=== PATIENT | female | born 1955 | race African-American/Black ===

== ENCOUNTER 2024-11-30 13:51 | Outpatient (AMB) | payer MEDICARE, SELFPAY ==
--- NOTE | 2024-11-30 13:55 | A.OFFVIS_ITS ---
Vital Signs 11/30/24 14:04 Pulse 65 Intake Visit Reasons: [facility] [place] chloroquine Allergy (Unknown, Verified 11/22/24 11:29) Unknown Medication List - Last Reconciled 11/30/24 by Gomez Warren MD famotidine 20 mg PO BID montelukast 10 mg PO BEDTIME valsartan 160 mg PO DAILY verapamil ER 240 mg PO DAILY HPI Comments Details: The patient is a 69-year-old female presenting with elevated blood pressure and management of migraine headaches. Her current treatment with Verapamil has partially alleviated symptoms associated with both conditions, but her blood pressure is persistently high. It was confirmed that she adheres to her prescribed medication regimen, including a secondary medication taken in the evening. However, the existing medication dosage appears insufficient to achieve target blood pressure levels. An upcoming consultation with her primary care physician to evaluate her current treatment plan was advised. Consideration of adding or modifying the treatment plan, pending evaluation by her primary provider, was highlighted. [facility] Medical History (Updated 11/30/24 @ 13:57 by Gomez Warren MD) Migraine Hypertension Review of Systems Const Details: - Cardiovascular: Reports elevated blood pressure; adherence to Verapamil noted. - Neurologic: Reports improvement of headaches with current treatment regimen. Physical Exam Neuro Other: Mental Status: Alert and oriented to person, place, and time. Normal attention. Normal spontaneous speech, fluency, and comprehension. No obvious issues with mood and memory. Affect is appropriate. Cranial Nerves: CN II: Visual luciano full to confrontation, visual acuity intact. CN III, IV, : Pupils equal, round, reactive to light and accommodation. Extraocular movements are normal. CN V: Facial sensation is normal. CN VII: Facial movements symmetrical. CN VIII: Hearing intact to bedside conversation is normal. CN IX, X: Palate elevates symmetrically. CN XI: Shoulder shrug and head turn symmetrical. CN XII: Tongue midline without atrophy or fasciculations. Extrapyramidal: Full facial expressions and blinking. No rigidity. Movements are appropriate with no tremor or abnormality. Speech: Normal; no dysarthria or tremor. Assessment & Plan Assessment & Plan (1) Migraine: Code(s): G43.909 - Migraine, unspecified, not intractable, without status migrainosus Category: Medical Qualifiers: Migraine type: migraine (< 15 days per month) without aura Status migrainosus presence: without status migrainosus Intractability: not intractable Qualified Code(s): G43.009 - Migraine without aura, not intractable, without status migrainosus Plan Impression: HTN and migraine Rec: a: Please discuss BP managemnet with PCP b: Continue verapamil 240mg at night Medications: New verapamil ER 240 mg PO DAILY 90 caps 1RF Coding Level of Care Code Est Pt Level 4 (53736) Diagnoses Migraine without aura and without status migrainosus, not intractable G43.009 Migraine type: migraine (< 15 days per month) without aura Status migrainosus presence: without status migrainosus Intractability: not intractable
[2024-11-30 14:04] VITALS: PULSE 65
--- OUTSIDE RECORDS SUMMARY | 2024-11-30 14:45 | XMS_ITS | Clinical Summary ---
Author Organization [facility] Address [address] [place] [address] Phone Care Team Providers Care Assistance Specialist Name Role Phone Marya Pedraza MD Primary Care Prov ider Allergies Active Allergy Reactions Criticality Noted Date Comments Ratcliff Itching 09/18/2016 Chloroquine Hcl Itching 05/31/2008 Codeine Itching 06/13/2009 Medications ASPIRIN-ACETAM INOPHEN-CAFFEI NE ORAL Take 1 tablet by mouth as needed. Active bisacodyL (DULCOLAX) 5 mg EC tablet Take 2 tabs by mouth right before beginning bowel prep. Follow instructions given by office for timing. 09/03/19 24 Active budesonide-for moteroL (Symbicort) 160-4.5 mcg/actuation inhaler Inhale 2 Puffs into the lungs 2 Times Daily. 12/05/19 23 Active hydrOXYzine HCL (ATARAX) 25 mg tablet Take 1 Tablet by mouth 3 times daily as needed for Itching. 08/20/19 24 Active levocetirizine (XYZAL) 5 mg tablet Take 1 Tablet by mouth every evening. 12/05/19 23 Active polyethylene glycol (GoLYTELY) 236-22.74-6.74 -5.86 gram solution Take 240 mL by mouth once for 1 dose. Take 4L by mouth once for one dose. May substitue any PEG. Starting at 6PM the night before your procedure drink 1 8oz glasses at your own pace until rectals run clear. 11/10/19 24 Active verapamil ER (VERELAN) 240 mg 24 hr capsule Take 1 Capsule by mouth daily. 10/30/19 24 Active fluticasone-um eclidinium-erin anterol (Trelegy Ellipta) 200-62.5-25 mcg inhaler Inhale 1 Puff into the lungs daily. - Inhalation 11/14/19 24 Active butalbital-soledad taminophen-caf feine (FIORICET, ESGIC) 50-325-40 mg per tablet TAKE 1 TABLET BY MOUTH EVERY 4 HOURS NEEDED FOR HEADACHE FOR UP TO 28 DAYS 20 tablet 04/28/19 25 Active albuterol HFA (PROAIR HFA ; PROVENTIL HFA ; VENTOLIN HFA) 90 mcg/actuation inhalerIndicat ions:Wheezing Inhale 2 puffs by mouth every 4 (four) hours if needed for wheezing. 18 g 1 05/10/19 25 Active bisacodyL (DULCOLAX) 5 mg EC tablet Take 2 tablets by mouth right before beginning bowel prep. See instructions provided by the office 2 tablet 09/08/19 25 Active polyethylene glycol (Golytely) 236-22.74-6.74 -5.86 gram solution Take 4L by mouth once for one dose. May substitue any PEG. Starting at 6PM the night before your procedure drink 1 8oz glasses at your own pace until you complete half of the gallon. Finish 2nd half of the gallon 5 hours before your procedure. 4000 mL 09/08/19 25 Active valsartan (DIOVAN) 160 mg tablet TAKE 1 TABLET BY MOUTH DAILY 90 tablet 09/09/19 25 Active montelukast (SINGULAIR) 10 mg tablet TAKE 1 TABLET BY MOUTH AT BEDTIME 90 tablet 11/20/19 25 Active famotidine (Pepcid) 20 mg tablet Take 1 tablet (20 mg total) by mouth 2 (two) times a day. 180 each 1 05/10/19 25 025 montelukast (SINGULAIR) 10 mg tablet TAKE 1 TABLET BY MOUTH AT BEDTIME 90 tablet 08/03/19 25 025 Discontinued Active Problems Problem Noted Date Diagnosed Date Chronic nonintractable headache 07/05/2021 COVID-19 virus infection 04/04/2021 Overview (01/08/2024): 03/21/2021 Elevated lipids 09/08/2018 Obesity (BMI 30-39.9) 09/08/2018 Allergic rhinitis 01/30/2011 Constipation 01/30/2011 Hypertension 01/30/2011 Encounters Date Type Department Care Team Description 09/27/2024 10:16 AM EDT - 09/27/2024 11:59 PM EDT Hospital Encounter Radiology Department - [address] [phone] Screening mammogram for breast cancer Discharge Disposition: Home or Self Care 09/21/2024 10:35 AM EDT Anesthesia Event [facility] [address] [place] [phone] Uvaldo Garza MD 09/21/2024 9:46 AM EDT - 09/21/2024 11:59 PM EDT Hospital Encounter [facility] [address] [place] [phone] Rishi Stanford MD Hayes, Brett L, CRNA Saliga, Jesse L, MD Hx of colonic polyps Discharge Disposition: Home or Self Care 09/17/2024 9:08 AM EDT - 09/17/2024 11:59 PM EDT Hospital Encounter Bone Density - [address] [phone] Encounter for screening for osteoporosis Discharge Disposition: Home or Self Care from Last 3 Months Immunizations Name Administration Dates Next Due Hepatitis A Adult (Havrix; V aqta) 19yo and older 09/24/2005,05/29/2004,11/06/1998 IPV Inactivated polio (Ipol) 6wks and older 06/05/2004,11/06/1998 Influenza Quadravalent, MDCK , 0.5ml, preservative free (Flucelvax) 6mo and older 02/22/2022,02/05/2021,01/25/2020,02/23,02/03/2018,03/12/2017 Influenza trivalent, 0.5mL, preservative free (Fluarix; FluLaval; Fluzone) ages 6mo and older (Afluria) 3 years and older 03/24/2012 Influenza trivalent, with pr eservative (Fluzone; Afluria) 6mo and older 01/31/2016,01/30/2011,01/23/2010,12/22,02/09/2007,02/18/2005,03/15/2004 Meningococcal MCV4P 05/09/2011,05/29/2004 Pfizer SARS-CoV-2 COVID-19, mRNA, LNP-S, preservative free 07/26/2020,07/04/2020 Td Tetanus diptheria (Tdvax) 7yo and older 06/05/2004 Tdap Tetanus diptheria acell ular pertussis (Boostrix; Adacel) 7yo and older 01/25/2020,09/13/2008 Typhoid VICPS (Typhim Vi) 2y o and older 05/09/2011,09/13/2008,05/29/2004,05/09 Yellow Fever (YF-VAX) 9mo and older 09/24/2005,0 06/03/1995 Surgical History Surgery Date Site/Laterality Comments CARPAL TUNNEL RELEASE 04/07/2007 PROCEDURE: HISTORICAL CARPAL TUNNEL REL COLONOSCOPY 02/20/2009 PROCEDURE: HISTORICAL COLONOSCOPY; COMMENT: normal; repeat in ten years Medical History Medical History Date Comments Unspecified essential hypertension DX:Unspecified essential hypertension Obesity (BMI 30-39.9) 09/08/2018 DX:Obesity (BMI 30-39.9) Elevated lipids 09/08/2018 DX:Elevated lipi ds Asthma Migraine Hyperlipidemia Family History Medical History Relation Name Comments No Known Problems Brother 1 No Known Problems Brother 2 No Known Problems Brother 3 No Known Problems Daughter 1 No Known Problems Daughter 2 No Known Problems Father No Known Problems Mother No Known Problems Sister 1 No Known Problems Sister 2 No Known Problems Sister 3 No Known Problems Sister 4 No Known Problems Son Blindness Neg Hx Breast cancer Neg Hx Cataracts Neg Hx Colon cancer Neg Hx Glaucoma Neg Hx Macular degeneration Neg Hx Ovarian cancer Neg Hx Strabismus Neg Hx Relation Name Status Comments Brother 1 Alive Brother 2 Alive Brother 3 Alive Daughter 1 Alive Daughter 2 Alive Father Mother Alive Sister 1 Alive Sister 2 Alive Sister 3 Alive Sister 4 Alive Son Alive Social History Tobacco Use Types Packs/Day Years Used Date Smoking Tobacco: Never Smokeless Tobacco: Never Alcohol Use Standard Drinks/Week Comments No 0 (1 standard drink = 0.6 oz pur e alcohol) Interpersonal Safety Answer Date Record ed Physical Abuse 09/21/2024 Verbal Abuse 09/21/2024 Comments No Sex and Gender Information Value Date Recorded Sex Assigned at Not on file Legal Sex Female 9:32 AM EST Gender Identity Not on file Sexual Orientation Not on file Obstetrics History Para Term AB IAB SAB Ectopic Multiple Livin g Live Births 3 3 3 3 Date Outcome GA Total Labor Labor/2nd/3rd Weight Sex Type Anes PTL Jennifer A1 A5 Name Clin Term Term Term Last Filed Vital Signs Vital Sign Reading Time Taken Comments Blood Pressure 135/83 09/21/2024 11:15 AM EDT Pulse 79 09/21/2024 11:15 AM EDT Temperature 36.3 C (97.3 F) 09/21/2024 10:55 AM EDT Respiratory Rate 19 09/21/2024 11:15 AM EDT Oxygen Saturation 98% 09/21/2024 11:15 AM EDT Inhaled Oxygen Concentration - - Weight 83.5 kg (184 lb) 09/21/2024 10:21 AM EDT Height 157.5 cm (5' 2 ) 09/21/2024 10:21 AM EDT Body Mass Index 33.65 09/21/2024 10:21 AM EDT Plan of Treatment Upcoming Encounters Date Type Department Care Team (Late st Contact Info) Description 12/17/2024 9:00 AM EDT Office Visit Adult Medicine - [address] [phone] Marya Pedraza MD [address] [place] [id number] Health Maintenance Due Date Last Done Comments IPV Vaccines (3 of 3 - Adult catch-up series) 12/06/2004 06/05/2004, 11/06/1998 Pneumococcal Vaccine: 50+ Years (1 of 1 - PCV) 2006 Zoster Vaccines (1 of 2) 2006 Falls Risk Assessment 03/16/2022 Medicare Annual Wellness Visit 03/16/2022 Social Influencers of Health Screening 03/16/2022 COVID-19 Vaccine ( season) 2023 07/26/2020, 07/04/2020 Depression Screening 04/07/2024 Hypertension/CHF/CAD Annual BMP Blood Test 11/09/2024 11/10/2023, 11/10/2023 Influenza Vaccine (#1) 2024 2, 02/05/2021, 01/25/2020, Additional history exists Breast Cancer Screening 09/27/2026 09/28/19 25, 06/24/2023, 03/06/2022 Cholesterol Screening (Lipid Panel) 11/09/2028 11/10/2023, 11/10/2023 DTaP,Tdap,and Td Vaccines (5 - Td or Tdap) 01/24/2030 01/25/2020, 08/14/2016, 09/13/2008, Additional history exists Colorectal Cancer Screening: Colonoscopy 09/22/2031 09/21/2024, 09/17/2023 RSV Immunization Adult Patients (1 - 1-dose 75+ series) 11/15/2031 Osteoporosis Screening (Bone Density Screening) 09/17/2034 09/17/2024 Hepatitis A Vaccines Aged Out 09/24/2005, 05/29/2004, 11/06/1998 No longer eligible based on patient's age to complete this topic Hepatitis C Screening Completed 09/23/2012 Meningococcal ACWY Vaccine Aged Out 08/14, 05/09/2011, 05/29/2004 No longer eligible based on patient's age to complete this topic HIB Vaccines Aged Out No longer eligi ble based on patient's age to complete this topic HPV Vaccines Aged Out No longer eligi ble based on patient's age to complete this topic Hepatitis B Vaccines Aged Out No long er eligible based on patient's age to complete this topic MMR Vaccines Aged Out No longer eligi ble based on patient's age to complete this topic Meningococcal B Vaccine Aged Out No l onger eligible based on patient's age to complete this topic RSV Immunization Patients Under 20 months Aged Out No longer eligible based on patient's age to complete this topic Varicella Vaccines Aged Out No longer eligible based on patient's age to complete this topic Procedures Procedure Name Priority Date/Time Associated Diagnosis Comments MG MAMMO DIGITAL SCREENING W DANIAL BILAT Routine 09/27/2024 10:27 AM EDT Screening mammogram for breast cancer COLONOSCOPY Routine 09/21/2024 10:54 AM EDT Hx of colonic polyps TISSUE EXAM Routine 09/21/2024 10:51 AM EDT Hx of colonic polyps BD BONE DENSITY DXA AXIAL SKELETON Routine 09/17/2024 9:30 AM EDT Encounter for screening for osteoporosis ANNUAL BMP BLOOD TEST Routine 11/10/2023 LIPID PANEL Routine 11/10/2023 HEPATITIS C SCREENING Routine 09/23/2012 from Last 3 Months or Most Recently Relevant to Health Maintenance Results * MG Mammo Digital Screening w Danial bilat (09/27/2024 10:27 AM EDT) Anatomical Region Laterality Modality Breast Bilateral Mammography 09/27/2024 7:16 PM EDT Impressions 09/27/2024 7:17 PM EDT No mammographic evidence of malignancy. BREAST DENSITY: B - There are scattered areas of fibroglandular density. BI-RADS CATEGORY: 1 - NEGATIVE RECOMMENDATION: Screening bilateral mammogram is recommended in 1 year. MAMMO LOCATION: [facility], [address] [place] [address], [id number], . -------- FINAL REPORT -------- Dictated By: Salina West Dictated Date: 09/27/2024 19:16 ET Assigned Physician: Salina West Reviewed and Electronically Signed By: Salina West Signed Date: 09/27/2024 19:17 ET Workstation ID: [id number] Transcribed By: Self Edit Transcribed Date: 09/27/2024 19:16 ET Narrative 09/27/2024 7:17 PM EDT EXAM: Screening Mammogram CLINICAL: 68 years old, Female, routine annual exam. COMPARISON: 06/24/2023 and as far back as 04/18/2020 TECHNIQUE: Bilateral MLO and CC views were obtained digitally with 3-D mammogram (digital breast tomosynthesis). Computer-aided detection was utilized in evaluation of this exam (CAD). FINDINGS: No new suspicious mass, architectural distortion, or suspicious calcifications. Procedure Note Salina West MD - 09/27/2024 EXAM: Screening Mammogram CLINICAL: 68 years old, Female, routine annual exam. COMPARISON: 06/24/2023 and as far back as 04/18/2020 TECHNIQUE: Bilateral MLO and CC views were obtained digitally with 3-Dmammogram (digital breast tomosynthesis). Computer-aided detection wasutilized in evaluation of this exam (CAD). FINDINGS: No new suspicious mass, architectural distortion, or suspiciouscalcifications. IMPRESSION: No mammographic evidence of malignancy. BREAST DENSITY: B - There are scattered areas of fibroglandular density. BI-RADS CATEGORY: 1 - NEGATIVE RECOMMENDATION: Screening bilateral mammogram is recommended in 1 year. MAMMO LOCATION: [facility], [address] [place] [address], [phone], . -------- FINAL REPORT -------- Dictated By: Salina West Dictated Date: 09/27/2024 19:16 ET Assigned Physician: Salina West Reviewed and Electronically Signed By: Salina West Signed Date: 09/27/2024 19:17 ET Workstation ID: [id number] Transcribed By: Self Edit Transcribed Date: 09/27/2024 19:16 ET Marya Pedraza MD IMG BI PROCEDURES Final Result * COLONOSCOPY Anesthesia - MAC; [facility] ENDOSCOPY (09/21/2024 10:54 AM EDT) Anatomical Region Laterality Modality Endoscopy 09/21/2024 10:3 7 AM EDT Impressions 09/21/2024 10:55 AM EDT - One diminutive polyp in the descending colon, removed with a jumbo cold forceps. Resected and retrieved. - The examination was otherwise normal on direct and retroflexion views. Recommendation: - Discharge patient to home. - Await pathology results. - Repeat colonoscopy in 10 years for surveillance. Narrative 09/21/2024 10:55 AM EDT [facility] GI Patient Name: Sherri Butterfield Procedure Date: 09/21/2024 10:37 AM Date of : 1955 Age: 68 Gender: Female Note Status: Finalized Attending MD: Rishi Stanford MD, Procedure Date No Time: 09/21/2024 Procedure: Colonoscopy Indications: High risk colon cancer surveillance: Personal history of colonic polyps Providers: Rishi Stanford MD Referring MD: Rishi Stanford MD Medicines: Monitored Anesthesia Care Complications: No immediate complications. Estimated blood loss: Minimal. Estimated Blood Loss: Estimated blood loss was minimal. Procedure: Pre-Anesthesia Assessment: - Prior to the procedure, a History and Physical was performed, and patient medications and allergies were reviewed. The patient is competent. The risks and benefits of the procedure and the sedation options and risks were discussed with the patient. All questions were answered and informed consent was obtained. Patient identification and proposed procedure were verified by the physician, the nurse, the rebeamer and the technician automatic in the pre-procedure area in the endoscopy suite. Mental Status Examination: alert and oriented. Airway Examination: normal oropharyngeal airway and neck mobility. Respiratory Examination: clear to auscultation. CV Examination: normal. Prophylactic Antibiotics: The patient does not require prophylactic antibiotics. Prior Anticoagulants: The patient has taken no anticoagulant or antiplatelet agents. ASA Grade Assessment: III - A patient with severe systemic disease. After reviewing the risks and benefits, the patient was deemed in satisfactory condition to undergo the procedure. The anesthesia plan was to use monitored anesthesia care (MAC). Immediately prior to administration of medications, the patient was re-assessed for adequacy to receive sedatives. The heart rate, respiratory rate, oxygen saturations, blood pressure, adequacy of pulmonary ventilation, and response to care were monitored throughout the procedure. The physical status of the patient was re-assessed after the procedure. After I obtained informed consent, the scope was passed under direct vision. Throughout the procedure, the patient's blood pressure, pulse, and oxygen saturations were monitored continuously. The Olympus Colonoscope was introduced through the anus and advanced to the cecum, identified by appendiceal orifice and ileocecal valve. The colonoscopy was performed without difficulty. The patient tolerated the procedure well. The quality of the bowel preparation was good. Findings: The perianal and digital rectal examinations were normal. A diminutive polyp was found in the descending colon. The polyp was sessile. The polyp was removed with a jumbo cold forceps. Resection and retrieval were complete. Estimated blood loss was minimal. The exam was otherwise without abnormality on direct and retroflexion views. Procedure Code(s): --- Professional --- 58293, Colonoscopy, flexible; with biopsy, single or multiple Diagnosis Code(s): --- Professional --- D12.4, Benign neoplasm of descending colon CPT copyright 2020 [employer]. All rights reserved. The codes documented in this report are preliminary and upon proof reader review may be revised to meet current compliance requirements. Rishi Stanford MD 09/21/2024 10:55:02 AM This report has been signed electronically.Rishi Stanford MD Number of Addenda: 0 Note Initiated On: 09/21/2024 10:37 AM Scope Withdrawal Time: 0 hours 8 minutes 4 seconds Scope In: 10:42:01 AM Scope Out: 10:52:58 AM Endoscopy Department at [facility] - [address] [place] [phone] Procedure Note Rishi Stanford MD - 09/21/2024 [facility] GI Patient Name: Sherri Butterfield Procedure Date: 09/21/2024 10:37 AM Date of : 1955 Age: 68 Gender: Female Note Status: Finalized Attending MD: Rishi Stanford MD, Procedure Date No Time: 09/21/2024 Procedure: Colonoscopy Indications: High risk colon cancer surveillance: Personalhistory of colonic polyps Providers: Rishi Stanford MD Referring MD: Rishi Stanford MD Medicines: Monitored Anesthesia Care Complications: No immediate complications. Estimated blood loss: Minimal. Estimated Blood Loss: Estimated blood loss was minimal. Procedure: Pre-Anesthesia Assessment: - Prior to the procedure, a History and Physicalwas performed, and patient medications and allergieswere reviewed. The patient is competent. The risks and benefits of the procedure and the sedation optionsand risks were discussed with the patient. Allquestions were answered and informed consent was obtained. Patient identification and proposed procedure were verified by the physician, the nurse, theanesthetist and the technician automatic in the pre-procedure area in the endoscopy suite. Mental Status Examination: alertand oriented. Airway Examination: normal oropharyngeal airway and neck mobility. Respiratory Examination: clear to auscultation. CV Examination: normal. Prophylactic Antibiotics: The patient does notrequire prophylactic antibiotics. Prior Anticoagulants: The patient has taken no anticoagulant or antiplatelet agents. ASA Grade Assessment: III - A patient with severe systemic disease. After reviewing the risksand benefits, the patient was deemed in satisfactory condition to undergo the procedure. The anesthesia plan was to use monitored anesthesia care (MAC). Immediately prior to administration of medications, the patient was re-assessed for adequacy to receive sedatives. The heart rate, respiratory rate, oxygen saturations, blood pressure, adequacy of pulmonary ventilation, and response to care were monitored throughout the procedure. The physical status ofthe patient was re-assessed after the procedure. After I obtained informed consent, the scope was passed under direct vision. Throughout theprocedure, the patient's blood pressure, pulse, and oxygen saturations were monitored continuously. TheOlympus Colonoscope was introduced through the anus and advanced to the cecum, identified by appendiceal orifice and ileocecal valve. The colonoscopy was performed without difficulty. The patient tolerated the procedure well. The quality of the bowel preparation was good. Findings: The perianal and digital rectal examinations were normal. A diminutive polyp was found in the descendingcolon. The polyp was sessile. The polyp was removed with a jumbo cold forceps. Resection and retrieval were complete. Estimated blood loss was minimal. The exam was otherwise without abnormality ondirect and retroflexion views. Procedure Code(s): --- Professional --- 95960, Colonoscopy, flexible; with biopsy, singleor multiple Diagnosis Code(s): --- Professional --- D12.4, Benign neoplasm of descending colon CPT copyright 2020 [employer]. All rights reserved. The codes documented in this report are preliminary and upon proof reader reviewmay be revised to meet current compliance requirements. Rishi Stanford MD 09/21/2024 10:55:02 AM This report has been signed electronically.Rishi Stanford MD Number of Addenda: 0 Note Initiated On: 09/21/2024 10:37 AM Scope Withdrawal Time: 0 hours 8 minutes 4 seconds Scope In: 10:42:01 AM Scope Out: 10:52:58 AM Endoscopy Department at [facility] - [address] [place] [phone] IMPRESSION: - One diminutive polyp in the descending colon, removed with a jumbo cold forceps. Resected and retrieved. - The examination was otherwise normal on directand retroflexion views. Recommendation: - Discharge patient to home. - Await pathology results. - Repeat colonoscopy in 10 years forsurveillance. Rishi Stanford MD GI~PROCEDURE ORDERABLES Fin al Result * Tissue exam (09/21/2024 10:51 AM EDT) Final Diagnosis A. Large Intestine, Left/Descending Colon, polyp x1: - Tubular adenoma. 09/22/2024 10:24 AM EDT [facility] Gross Description A. Large Intestine, Left/Descending Colon, polyp x1: Labeled desc colon polyp x 1 . Received in formalin are two soft to rubbery, schneider-pink to red tissue fragments, approximately measuring 0.7 cm and 1.1 cm in greatest diameters, which are wrapped in paper and submitted in toto in one cassette, two pieces, multiple levels. hs/DG 09/22/2024 10:24 AM EDT [facility] Disclaimer Unless otherwise specified, all tissue is 10% NB formalin fixed and paraffin embedded. 09/22/2024 10:24 AM EDT [facility] Tissue Descending colon structure / Unknown 09/21/2024 10:51 AM EDT 09/21/2024 12:20 PM EDT us Rishi Stanford MD LAB PATHOLOGY ORDERABLES Fi nal Result [facility] [address] [place] [address], [place] [phone] * BD Bone Density DXA Axial Skeleton (09/17/2024 9:30 AM EDT) Anatomical Region Laterality Modality Wrist, Hip, L-spine Bone Densito metry 09/17/2024 11:4 3 AM EDT Impressions 09/17/2024 11:49 AM EDT Normal bone density Reference Information: The T-score is the number of standard deviations above or below the standard which is normal for young adults at their peak bone mineral density. The World Health Organization (WHO) interprets the T-scores as follows: At or above -1 SD Normal bone density Between -1 and -2.5 SD Osteopenia At or below -2.5 SD Osteoporosis -------- FINAL REPORT -------- Dictated By: Shabana Bustamante Dictated Date: 09/17/2024 11:43 ET Assigned Physician: Shabana Bustamante Reviewed and Electronically Signed By: Shabana Bustamante Signed Date: 09/17/2024 11:49 ET Workstation ID: [id number] Transcribed By: Self Edit Transcribed Date: 09/17/2024 11:43 ET Narrative 09/17/2024 11:49 AM EDT STUDY: DUAL ENERGY X-RAY ABSORPTIOMETRY / DXA REASON FOR EXAM: Female, 68 years old screen TECHNIQUE: Bone Mineral Density (BMD) measurements of the lumbar spine and left hip were obtained using [employer] Discovery W (S/N [id number]). COMPARISON: None FINDINGS: L1-L4 BMD: 0.948 g/cm2 L1-L4 T score: -0.9. This corresponds to Normal bone density. Left femoral neck BMD: 0.861 g/cm2 Left femoral neck T score: 0.1. This corresponds to Normal bone density. Left total hip BMD: 1.024 g/cm2 Left total hip T score: 0.7. This corresponds to Normal bone density. Procedure Note Shabana Bustamante MD - 09/17/2024 STUDY: DUAL ENERGY X-RAY ABSORPTIOMETRY / DXA REASON FOR EXAM: Female, 68 years old screen TECHNIQUE: Bone Mineral Density (BMD) measurements of the lumbar spineand left hip were obtained using [employer] W (S/N [id number]). COMPARISON: None FINDINGS: L1-L4 BMD: 0.948 g/cm2 L1-L4 T score: -0.9. This corresponds to Normal bone density. Left femoral neck BMD: 0.861 g/cm2 Left femoral neck T score: 0.1. This corresponds to Normal bonedensity. Left total hip BMD: 1.024 g/cm2 Left total hip T score: 0.7. This corresponds to Normal bone density. IMPRESSION: Normal bone density Reference Information: The T-score is the number of standard deviations above or below thestandard which is normal for young adults at their peak bone mineraldensity. The World Health Organization (WHO) interprets the T-scores asfollows: At or above -1 SD Normal bone density Between -1 and -2.5 SD Osteopenia At or below -2.5 SD Osteoporosis -------- FINAL REPORT -------- Dictated By: Shabana Bustamante Dictated Date: 09/17/2024 11:43 ET Assigned Physician: Shabana Bustamante Reviewed and Electronically Signed By: Shabana Bustamante Signed Date: 09/17/2024 11:49 ET Workstation ID: [id number] Transcribed By: Self Edit Transcribed Date: 09/17/2024 11:43 ET Ella ALFREDO IMG DXA PROCEDURES Final R esult * Annual BMP Blood Test (11/10/2023) Health system Annual BMP Blood Test Abstracted Historical Provider HEALTH MAINTENANCE Final Result * (ABNORMAL) Lipid panel (11/10/2023) LDL/HDL Ratio 3 0 - 4 Triglycerides 55 0 - 150 mg/dL Cholesterol 200 0 - 200 mg/dL HDL 60 >=40 mg/dL LDL Cholesterol 129(A) 0 - 100 mg/dL Blood Venous blood specimen / Unknown [facility] Provider LAB BLOOD ORDERABLES Meggan l Result * Hepatitis C Screening (09/23/2012) Hepatitis C Screening Abstracted [facility] Provider HEALTH MAINTENANCE Final Result from Last 3 Months or Most Recently Relevant to Health Maintenance Insurance [facility] MEDICARE Care Teams Assistance Specialist Relationship Specialty Start Date End Date Marya Pedraza MD PCP - General 05/18/08
--- OUTSIDE RECORDS SUMMARY | 2024-11-30 14:45 | XMS_ITS ---
Author Name [facility] Organization Unknown Care Team Organization Name Specialty Phone Email Start Date End Da te [facility] AMALIA GUARDADO Primary Care 02/12/2022 11/24/2023
== END 2024-11-30 14:08 | disposition home or self-care (01) ==
LOC: HO.HSM 13:51
PROVIDERS: PCP Internal Medicine; Visit Provider Psychiatry & Neurology Neurology
DX: G43.009 Migraine without aura, not intractable, without status migrainosus (principal)
CPT/HCPCS: 99214

== ENCOUNTER → 2024-11-30 13:51 | Outpatient (BNVA) | payer MEDICARE, SELFPAY | PROVIDERS: PCP Internal Medicine; Visit Provider Psychiatry & Neurology Neurology | DX: G43.009 Migraine without aura, not intractable, without status migrainosus (principal) | CPT/HCPCS: 99212 ==